=== PATIENT | male | born 1945 | race Caucasian/White ===

== ENCOUNTER 2021-04-23 11:53 | Inpatient (IN) | payer MEDICARE, OTHER ==
[~2021-04-23] VITALS: Ht 190.5 cm; Wt 73.5 kg
[2021-04-23 13:35] LABS: HEMOGLOBIN 8.9 gm/dl (14.0-17.5); RED BLOOD COUNT 3.28 M/UL (4.20-5.50); WHITE BLOOD COUNT 6.7 K/UL (4.5-11.0)
[2021-04-24 05:13] LABS: HEMOGLOBIN 7.9 gm/dl (14.0-17.5); RED BLOOD COUNT 2.98 M/UL (4.20-5.50); WHITE BLOOD COUNT 5.1 K/UL (4.5-11.0)
[2021-04-24 05:43] LABS: BUN/CREATININE RATIO 12 (0-10)
[2021-04-24] MEDS ORDERED: LEVOTHYROXINE25 MCG PO (06:16)
[2021-04-24] MEDS ORDERED: FUROSEMIDE20 MG PO (06:16)
[2021-04-24] MEDS ORDERED: FLOMAX 0.4 MG0.4 MG PO (06:16)
[2021-04-24] MEDS ORDERED: LISINOPRIL20 MG PO (06:17)
[2021-04-24] MEDS ORDERED: OMEPRAZOLE20 MG PO (06:17)
[2021-04-24] MEDS ORDERED: QUETIAPINE FUMA50 MG PO (06:17)
[2021-04-24] MEDS ORDERED: MECLIZINE HCL25 MG PO (06:17)
[2021-04-24] MEDS ORDERED: ALPRAZOLAM0.5 MG PO (06:18)
[2021-04-24] MEDS ORDERED: GABAPENTIN800 MG PO (06:18)
[2021-04-24 13:03] LABS: BODY FLUID SOURCE ASCITES; MONONUCLEAR CELLS 90 (75-100); POLYMORPHONUCLEAR % 10 (0-25); RBC (AUTOMATED) 100 (0-100000); WBC (AUTOMATED) 127 (0-500)
--- NOTE | 2021-04-25 01:18 | NUR ---
04/24/2021 @ 22:18 - Telemetry called this RN stating that patient heart rate dropped to 20's-30's two times. RN was in patient room both times telemetry called. Patient is stable, asymptomatic. MD Cooney notified, obtained order for EKG stat, and to call him with result. contacted with results, no new orders obtained. Will continue to monitor.
[2021-04-25 08:13] LABS: HBSAG SCREEN Negative (Negative); HEP A AB, IGM Negative (Negative); HEP B CORE AB, IGM Negative (Negative); HEP C VIRUS AB <0.1 (0.0-0.9)
[2021-04-25 10:38] LABS: WHITE BLOOD COUNT 4.2 K/UL (4.5-11.0)
[2021-04-25 10:44] LABS: RED BLOOD COUNT 2.54 M/UL (4.20-5.50)
[2021-04-25 10:45] LABS: HEMOGLOBIN 6.9 gm/dl (14.0-17.5)
[2021-04-25 11:40] LABS: BUN/CREATININE RATIO 11 (0-10)
[2021-04-25 16:47] LABS: ACINETOBACTER BAUMANNII Not Detected (Negative); CANDIDA ALBICANS Not Detected (Negative); CANDIDA KRUSEI Not Detected (Negative); CANDIDA TROPICALIS Not Detected (Negative); ENTEROCOCCUS Not Detected (Negative); ESCHERICHIA COLI Not Detected (Negative); HAEMOPHILUS INFLUENZAE Not Detected (Negative); KLEBSIELLA OXYTOCA Not Detected (Negative); KLEBSIELLA PNEUMONIAE Not Detected (Negative); KPC-CARBAPENEM-RESISTANCE GENE Not Detected (Negative); PROTEUS Not Detected (Negative); PSEUDOMONAS AERUGINOSA Not Detected (Negative); SERRATIA MARCESANS Not Detected (Negative); STAPHYLOCOCCUS AUREUS Not Detected (Negative); STREP AGALACTIAE (GROUP B) Not Detected (Negative); STREP PYOGENES (GROUP A) Not Detected (Negative); STREPTOCOCCUS Not Detected (Negative); vanA/B (VANCOMYCIN RESIST GENE Not Detected (Negative)
--- NOTE | 2021-04-25 18:29 | NUR ---
PATIENTS IV NOTED TO INFILTRATE WITH BLOOD INFUSING. MD MADE AWARE. ORDERS TO ELEVATE AND APPLY WARM COMPRESS. NUEROVASCULAR CHECK IS INTACT AT THIS TIME. NO DISCOLORATIN. PATIENT DENIES ANY PAIN AT SITE.
[2021-04-25 18:53] LABS: STAPHYLOCOCCUS DETECTED (Negative); mecA (METHICILLIN RESIST GENE DETECTED (Negative)
[2021-04-26 03:47] LABS: HEMOGLOBIN 7.9 gm/dl (14.0-17.5); RED BLOOD COUNT 2.99 M/UL (4.20-5.50); WHITE BLOOD COUNT 5.8 K/UL (4.5-11.0)
[2021-04-26 04:24] LABS: BUN/CREATININE RATIO 12 (0-10)
[2021-04-27 03:24] LABS: HEMOGLOBIN 8.3 gm/dl (14.0-17.5); RED BLOOD COUNT 3.07 M/UL (4.20-5.50); WHITE BLOOD COUNT 5.1 K/UL (4.5-11.0)
[2021-04-27 03:37] LABS: BUN/CREATININE RATIO 12 (0-10)
[2021-04-28 09:09] LABS: HEMOGLOBIN 9.8 gm/dl (14.0-17.5); WHITE BLOOD COUNT 5.8 K/UL (4.5-11.0)
[2021-04-28 09:11] LABS: RED BLOOD COUNT 3.65 M/UL (4.20-5.50)
[2021-04-28 09:41] LABS: BUN/CREATININE RATIO 12 (0-10)
[2021-04-29 11:01] LABS: HEMOGLOBIN 9.1 gm/dl (14.0-17.5); RED BLOOD COUNT 3.4 M/UL (4.20-5.50); WHITE BLOOD COUNT 5.7 K/UL (4.5-11.0)
[2021-04-29 11:29] LABS: BUN/CREATININE RATIO 13 (0-10)
[2021-04-30 06:59] LABS: HEMOGLOBIN 9.1 gm/dl (14.0-17.5); RED BLOOD COUNT 3.36 M/UL (4.20-5.50); WHITE BLOOD COUNT 5.3 K/UL (4.5-11.0)
[2021-04-30 07:19] LABS: BUN/CREATININE RATIO 12 (0-10)
[2021-04-30 09:13] LABS: CREATININE, URINE 96.9 mg/dL (Not Estab.)
[2021-04-30] MEDS ORDERED: LOPRESSOR 25 MG25 MG PO (10:43)
[2021-04-30] MEDS ORDERED: CHRONULAC20 GM/30 M PO (10:43)
[2021-04-30] MEDS ORDERED: GLUCOPHAGE 500500 MG PO (10:44)
== END 2021-04-30 15:36 | disposition home or self-care (01) | DRG 432 ==
LOC: ER1 11:53 → EDBD 17:16 → CDU 17:16 → MED SURG 4 17:16
PROVIDERS: Internal Medicine Nephrology; Physician Assistant; ADMIT Internal Medicine
PROC: B24BZZZ Ultrasonography of Heart with Aorta (ICD-10-PCS; 2021-04-24)
PROC: 0W9G3ZZ Drainage of Peritoneal Cavity, Percutaneous Approach (ICD-10-PCS; 2021-04-24)
PROC: BW40ZZZ Ultrasonography of Abdomen (ICD-10-PCS; 2021-04-24)
PROC: 30233N1 Transfusion of Nonautologous Red Blood Cells into Peripheral Vein, Percutaneous Approach (ICD-10-PCS; principal; 2021-04-25)
DX: K74.60 Unspecified cirrhosis of liver (principal); K72.00 Acute and subacute hepatic failure without coma; K76.7 Hepatorenal syndrome; Z20.822 Contact with and (suspected) exposure to COVID-19; G93.41 Metabolic encephalopathy; N17.9 Acute kidney failure, unspecified; R18.8 Other ascites; I13.0 Hypertensive heart and chronic kidney disease with heart failure and stage 1 through stage 4 chronic kidney disease, or unspecified chronic kidney disease; D50.0 Iron deficiency anemia secondary to blood loss (chronic); N18.9 Chronic kidney disease, unspecified; I50.9 Heart failure, unspecified; F41.1 Generalized anxiety disorder; R00.1 Bradycardia, unspecified; K64.9 Unspecified hemorrhoids; I08.1 Rheumatic disorders of both mitral and tricuspid valves; H53.8 Other visual disturbances; E88.09 Other disorders of plasma-protein metabolism, not elsewhere classified; N62 Hypertrophy of breast; I44.0 Atrioventricular block, first degree; N20.0 Calculus of kidney; D63.1 Anemia in chronic kidney disease; E11.22 Type 2 diabetes mellitus with diabetic chronic kidney disease; E11.40 Type 2 diabetes mellitus with diabetic neuropathy, unspecified; Z79.4 Long term (current) use of insulin; Z91.81 History of falling; Z98.42 Cataract extraction status, left eye; Z98.41 Cataract extraction status, right eye; Z80.1 Family history of malignant neoplasm of trachea, bronchus and lung; Z80.0 Family history of malignant neoplasm of digestive organs
CPT/HCPCS: ECHO; 36415; 70450; 71045; 71250; 80053; 80074; 81001; 82043; 82105; 82140; 82150; 82550; 82553; 82570; 82945; 82962; 83036; 83605; 83615; 83690; 83735; 83874; 83880; 83986; 84100; 84153; 84156; 84157; 84484; 85025; 85027; 85610; 85730; 86140; 86850; 86900; 86901; 86920; 87040; 87070; 87077; 87150; 87186; 87205; 89051; 93005; 93306; 93880; 93970; 97161; 99285; J1650; P9016; P9047; U0002